=== PATIENT | female | born 1985 | race Caucasian/White ===

== ENCOUNTER 2016-06-25 12:28 | Observation (INO) | payer OTHER ==
[~2016-06-25] VITALS: Ht 150 cm; Wt 59.9 kg
[2016-06-25 13:02] VITALS: BP 116/69
[2016-06-25] MEDS ORDERED: PREN1TAB80 PO (13:03)
[2016-06-25 13:21] LABS: BASOPHILS # (AUTO) 0.01 K/uL (0.00-0.20); BASOPHILS % (AUTO) 0.1 % (0.0-2.0); EOSINOPHILS # (AUTO) 0.06 K/uL (0.00-0.70); EOSINOPHILS % (AUTO) 0.72 % (1.0-6.0); HEMOGLOBIN 11.9 g/dL (12.0-16.0); LYMPHOCYTES # (AUTO) 1.5 K/uL (1.0-4.8); LYMPHOCYTES % (AUTO) 16.5 % (22.0-44.0); MEAN CORPUSCULAR HEMOGLOBIN 30.9 pg (26.0-34.0); MEAN CORPUSCULAR HGB CONC 33.1 G/dL (31.0-37.0); MEAN CORPUSCULAR VOLUME 93 fL (80-100); MONOCYTES # (AUTO) 0.6 K/uL (0.1-1.0); MONOCYTES % (AUTO) 6.2 % (2.0-9.0); NEUTROPHILS # (AUTO) 6.8 K/uL (1.8-7.7); NEUTROPHILS % (AUTO) 76.5 % (40.0-70.0); RED BLOOD CELL COUNT(AUTO) 3.87 MIL/uL (4.00-5.20); RED CELL DISTRIBUTION WIDTH 14.7 % (11.5-14.5); WHITE BLOOD COUNT (AUTO) 8.9 K/uL (4.5-11.0)
[2016-06-25 13:24] LABS: RBC MORPHOLOGY COMMENT NORMAL RBC MORPH
[2016-06-25] MEDS ORDERED: PHENYLEPHRINE/SHK LV/MIN OIL/PET 57 GM OINTMENT TP PRN (13:45)
[2016-06-25 13:49] LABS: ALANINE AMINOTRANSFERASE 142 U/L (12-78); ALBUMIN 2.3 g/dL (3.4-5.0); ANION GAP 11 mmol/L (8-16); ASPARTATE AMINOTRANSFERASE 58 U/L (15-37); BILIRUBIN,TOTAL 0.5 mg/dL (0.1-1.0); CALCIUM, TOTAL 8.9 mg/dL (8.8-10.5); CARBON DIOXIDE 23 mmol/L (22-29); CHLORIDE 105 mmol/L (98-107); CREATININE 0.69 mg/dL (0.60-1.30); GLOMERULAR FILTR. RATE CALC > 60 mL/min (>60); POTASSIUM 4.3 mmol/L (3.5-5.1); SODIUM SERUM 139 mmol/L (136-145); TOTAL PROTEIN, SERUM 6.8 g/dL (6.4-8.2); UREA NITROGEN, BLOOD 13 mg/dL (7-18)
== END 2016-06-25 14:50 | disposition home or self-care (01) ==
LOC: EDBD 12:28 → 4S 12:28
PROVIDERS: ADMIT Obstetrics & Gynecology; ATTEND Obstetrics & Gynecology
DX: O26.893 Other specified pregnancy related conditions, third trimester (principal); Z3A.36 36 weeks gestation of pregnancy
CPT/HCPCS: 36415; 59025; 80053; 82239; 85025; G0378

== ENCOUNTER 2016-06-28 20:39 | Inpatient (IN) | payer OTHER ==
[~2016-06-28] VITALS: Ht 160 cm; Wt 60.8 kg
[~2016-06-28 20:39] MED LIST: PREN1TAB80 PO
[2016-06-28] MEDS ORDERED: OXYTOCIN 30 UNITS/LACT RINGERS 500 ML IV ONE (21:18)
[2016-06-28] MEDS ORDERED: RINGERS SOLUTION,LACTATED 1,000 ML IV ONE (21:18)
[2016-06-28] MEDS ORDERED: LIDOCAINE HCL/PF 1% 30 ML VIAL INJ PRN (21:30)
[2016-06-28] MEDS ORDERED: METOCLOPRAMIDE HCL 5 MG/ML 2 ML VIAL IVP PRN (21:30)
[2016-06-28 21:49] LABS: BASOPHILS # (AUTO) 0.04 K/uL (0.00-0.20); BASOPHILS % (AUTO) 0.4 % (0.0-2.0); EOSINOPHILS # (AUTO) 0.06 K/uL (0.00-0.70); EOSINOPHILS % (AUTO) 0.73 % (1.0-6.0); HEMOGLOBIN 11.7 g/dL (12.0-16.0); LYMPHOCYTES # (AUTO) 2.3 K/uL (1.0-4.8); LYMPHOCYTES % (AUTO) 25.6 % (22.0-44.0); MEAN CORPUSCULAR HEMOGLOBIN 30.8 pg (26.0-34.0); MEAN CORPUSCULAR HGB CONC 33.3 G/dL (31.0-37.0); MEAN CORPUSCULAR VOLUME 93 fL (80-100); MONOCYTES # (AUTO) 0.3 K/uL (0.1-1.0); MONOCYTES % (AUTO) 3.8 % (2.0-9.0); NEUTROPHILS # (AUTO) 6.1 K/uL (1.8-7.7); NEUTROPHILS % (AUTO) 69.4 % (40.0-70.0); RED BLOOD CELL COUNT(AUTO) 3.78 MIL/uL (4.00-5.20); RED CELL DISTRIBUTION WIDTH 14.1 % (11.5-14.5); WHITE BLOOD COUNT (AUTO) 8.8 K/uL (4.5-11.0)
[2016-06-28] MEDS: RINGERS SOLUTION,LACTATED 1,000 ML IV SCH (22:19)
[2016-06-28 22:27] VITALS: BP 129/85
[2016-06-28] MEDS ORDERED: INFLUENZA VIRUS VACCINE QVS 2016-17 (3YR+)/PF 60 MCG/0.5 ML SYRINGE IM ONE (22:45)
[2016-06-28] MEDS: OXYTOCIN 30 UNITS/LACT RINGERS 500 ML IV PRN (23:45)
[2016-06-29] MEDS: RINGERS SOLUTION,LACTATED 1,000 ML IV SCH ×3 (03:48→18:12)
[2016-06-29 11:37] LABS: ALANINE AMINOTRANSFERASE 159 U/L (12-78); ANION GAP 12 mmol/L (8-16); ASPARTATE AMINOTRANSFERASE 89 U/L (15-37); BILIRUBIN,TOTAL 0.7 mg/dL (0.1-1.0); CALCIUM, TOTAL 8.4 mg/dL (8.8-10.5); CARBON DIOXIDE 22 mmol/L (22-29); CHLORIDE 105 mmol/L (98-107); POTASSIUM 4.3 mmol/L (3.5-5.1); SODIUM SERUM 139 mmol/L (136-145); TOTAL PROTEIN, SERUM 6.1 g/dL (6.4-8.2); UREA NITROGEN, BLOOD 9 mg/dL (7-18)
[2016-06-29 11:43] LABS: CREATININE 0.69 mg/dL (0.60-1.30); GLOMERULAR FILTR. RATE CALC > 60 mL/min (>60)
[2016-06-29] MEDS: FentaNYL CITRATE-PF 100 MCG/2 ML VIAL IVP PRN ×4 (15:51→19:30)
[2016-06-29] MEDS ORDERED: ROPIVACAINE HCL 0.2% ED ONE (20:31)
[2016-06-29] MEDS ORDERED: ROPIVACAINE HCL 0.2% 100 ML ED ONE (21:32)
[2016-06-29] MEDS ORDERED: ROPIVACAINE HCL 0.2% 100 ML ED PRN (21:35)
[2016-06-29] MEDS ORDERED: NALBUPHINE HCL 10 MG/ML VIAL IVP PRN (21:45)
[2016-06-29] MEDS ORDERED: PROMETHAZINE HCL 25 MG/ML VIAL IM PRN (21:45)
[2016-06-29] MEDS ORDERED: ONDANSETRON HCL 4 MG/2 ML VIAL IVP PRN (21:45)
[2016-06-29] MEDS ORDERED: DiphenhydrAMINE HCL 50 MG/ML VIAL IVP PRN (21:45)
[2016-06-30] MEDS ORDERED: ROPIVACAINE HCL 0.2% 100 ML ED ONE (02:28)
[2016-06-30] MEDS: RINGERS SOLUTION,LACTATED 1,000 ML IV SCH ×2 (03:14→06:26)
[2016-06-30] MEDS ORDERED: ACETAMINOPHEN 1000 MG/ISO-OSM 100 ML IV ONE (06:15)
[2016-06-30] MEDS ORDERED: LIDOCAINE HCL 2%/EPI 1:200,000/PF 10 ML VIAL ONE (06:35)
[2016-06-30] MEDS: OXYTOCIN 30 UNITS/LACT RINGERS 500 ML IV PRN (07:24)
[2016-06-30] MEDS ORDERED: LANOLIN 7 GM OINTMENT TP PRN (09:15)
[2016-06-30] MEDS ORDERED: ACETAMINOPHEN/CODEINE 300-30 MG TABLET PO PRN (09:15)
[2016-06-30] MEDS ORDERED: OXYTOCIN 20 UNITS in RINGERS SOLUTION,LACTATED 1,000 ML IV ONE (09:25)
[2016-06-30] MEDS: BENZOCAINE 20%/MENTHOL 56 GM SPRAY CANISTER TP PRN ×2 (09:54→16:08)
[2016-06-30] MEDS: GLYCERIN/WITCH HAZEL LEAF 40 PADS JAR TP PRN ×2 (09:54→16:08)
[2016-06-30] MEDS: IBUPROFEN 600 MG TABLET PO PRN ×2 (09:55→16:07)
[2016-06-30] MEDS: ACETAMINOPHEN/CODEINE 300-30 MG TABLET PO PRN ×2 (11:16→12:16)
[2016-06-30 15:13] LABS: BASOPHILS % (AUTO) 0.2 % (0.0-2.0); EOSINOPHILS % (AUTO) 0.1 % (1.0-6.0); HEMATOCRIT 31.6 % (36-46); HEMOGLOBIN 10.4 g/dL (12.0-16.0); LYMPHOCYTES # (AUTO) 1.9 K/uL (1.0-4.8); MEAN CORPUSCULAR HEMOGLOBIN 30.8 pg (26.0-34.0); MEAN CORPUSCULAR VOLUME 93 fL (80-100); MONOCYTES # (AUTO) 0.9 K/uL (0.1-1.0); MONOCYTES % (AUTO) 5.4 % (2.0-9.0); NEUTROPHILS # (AUTO) 14.6 K/uL (1.8-7.7); NEUTROPHILS % (AUTO) 83.3 % (40.0-70.0); RED BLOOD CELL COUNT(AUTO) 3.39 MIL/uL (4.00-5.20); RED CELL DISTRIBUTION WIDTH 14.8 % (11.5-14.5); WHITE BLOOD COUNT (AUTO) 17.5 K/uL (4.5-11.0)
[2016-06-30 15:35] LABS: ALANINE AMINOTRANSFERASE 139 U/L (12-78); ALBUMIN 1.7 g/dL (3.4-5.0); ANION GAP 9 mmol/L (8-16); ASPARTATE AMINOTRANSFERASE 97 U/L (15-37); BILIRUBIN,TOTAL 0.6 mg/dL (0.1-1.0); CALCIUM, TOTAL 8.5 mg/dL (8.8-10.5); CARBON DIOXIDE 23 mmol/L (22-29); CHLORIDE 104 mmol/L (98-107); CREATININE 0.94 mg/dL (0.60-1.30); GLOMERULAR FILTR. RATE CALC > 60 mL/min (>60); POTASSIUM 4.2 mmol/L (3.5-5.1); SODIUM SERUM 136 mmol/L (136-145); TOTAL PROTEIN, SERUM 5.3 g/dL (6.4-8.2); UREA NITROGEN, BLOOD 11 mg/dL (7-18)
[2016-06-30] MEDS: SENNA/DOCUSATE SODIUM 187-50 MG TABLET PO SCH (20:33)
[2016-06-30] MEDS: MAGNESIUM HYDROXIDE SUSPENSION 30 ML UDCUP PO SCH (20:33)
[2016-07-01 07:25] LABS: BASOPHILS # (AUTO) 0.06 K/uL (0.00-0.20); BASOPHILS % (AUTO) 0.5 % (0.0-2.0); EOSINOPHILS # (AUTO) 0.08 K/uL (0.00-0.70); HEMATOCRIT 28.1 % (36-46); HEMOGLOBIN 9.3 g/dL (12.0-16.0); LYMPHOCYTES # (AUTO) 2.2 K/uL (1.0-4.8); LYMPHOCYTES % (AUTO) 17.4 % (22.0-44.0); MEAN CORPUSCULAR VOLUME 94 fL (80-100); MONOCYTES # (AUTO) 0.6 K/uL (0.1-1.0); MONOCYTES % (AUTO) 4.6 % (2.0-9.0); NEUTROPHILS # (AUTO) 9.9 K/uL (1.8-7.7); NEUTROPHILS % (AUTO) 76.9 % (40.0-70.0); RED BLOOD CELL COUNT(AUTO) 2.99 MIL/uL (4.00-5.20); RED CELL DISTRIBUTION WIDTH 15.6 % (11.5-14.5); WHITE BLOOD COUNT (AUTO) 12.8 K/uL (4.5-11.0)
[2016-07-01 08:10] LABS: ALANINE AMINOTRANSFERASE 112 U/L (12-78); ALBUMIN 1.8 g/dL (3.4-5.0); ANION GAP 5 mmol/L (8-16); ASPARTATE AMINOTRANSFERASE 80 U/L (15-37); BILIRUBIN,TOTAL 0.3 mg/dL (0.1-1.0); CALCIUM, TOTAL 8.3 mg/dL (8.8-10.5); CARBON DIOXIDE 26 mmol/L (22-29); CHLORIDE 106 mmol/L (98-107); CREATININE 0.88 mg/dL (0.60-1.30); GLOMERULAR FILTR. RATE CALC > 60 mL/min (>60); POTASSIUM 4.6 mmol/L (3.5-5.1); SODIUM SERUM 137 mmol/L (136-145); TOTAL PROTEIN, SERUM 5.3 g/dL (6.4-8.2); UREA NITROGEN, BLOOD 13 mg/dL (7-18)
[2016-07-01] MEDS: MAGNESIUM HYDROXIDE SUSPENSION 30 ML UDCUP PO SCH (08:23)
[2016-07-01] MEDS: ACETAMINOPHEN/CODEINE 300-30 MG TABLET PO PRN (08:24)
[2016-07-01] MEDS: SENNA/DOCUSATE SODIUM 187-50 MG TABLET PO SCH (08:24)
[2016-07-01] MEDS: IBUPROFEN 600 MG TABLET PO PRN (08:24)
[2016-07-01] MEDS ORDERED: DSS100 PO (12:58)
[2016-07-01] MEDS ORDERED: FERR-89 PO (12:58)
[2016-07-01] MEDS ORDERED: IBUP-2070 PO (12:58)
== END 2016-07-01 14:15 | disposition home or self-care (01) | DRG 775 ==
LOC: OBSVTOIN 20:39 → 4S 20:39
PROVIDERS: ADMIT Obstetrics & Gynecology; ATTEND Obstetrics & Gynecology
PROC: 10D07Z6 Extraction of Products of Conception, Vacuum, Via Natural or Artificial Opening (ICD-10-PCS; principal; 2016-06-29)
PROC: 0UQMXZZ Repair Vulva, External Approach (ICD-10-PCS; 2016-06-29)
PROC: 3E0S3CZ (ICD-10-PCS; 2016-06-29)
PROC: 00HU33Z Insertion of Infusion Device into Spinal Canal, Percutaneous Approach (ICD-10-PCS; 2016-06-29)
PROC: 3E0234Z Introduction of Serum, Toxoid and Vaccine into Muscle, Percutaneous Approach (ICD-10-PCS; 2016-06-29)
DX: O26.62 Liver and biliary tract disorders in childbirth (principal); K83.1 Obstruction of bile duct; Z23 Encounter for immunization; O75.81 Maternal exhaustion complicating labor and delivery; O66.0 Obstructed labor due to shoulder dystocia; O71.82 Other specified trauma to perineum and vulva; Z37.0 Single live birth; Z3A.37 37 weeks gestation of pregnancy; O66.5 Attempted application of vacuum extractor and forceps
CPT/HCPCS: 86850; 86900; 86901; 90471; J0131; J2590; J2795; J3010; J3490; J7120

== ENCOUNTER 2017-11-21 17:45 | Inpatient (IN) | payer OTHER ==
[~2017-11-21] VITALS: Ht 149.9 cm; Wt 56.2 kg
[~2017-11-21 17:45] MED LIST changes: +DSS100 PO; +FERR-89 PO; +IBUP-2070 PO
[2017-11-21] MEDS ORDERED: RINGERS SOLUTION,LACTATED 1,000 ML IV PRN (17:47)
[2017-11-21] MEDS ORDERED: OXYTOCIN 30 UNITS/LACT RINGERS 500 ML IV ONE (17:47)
[2017-11-21 18:00] VITALS: BP 114/73
[2017-11-21] MEDS ORDERED: LIDOCAINE HCL/PF 1% 30 ML VIAL INJ PRN (18:00)
[2017-11-21] MEDS ORDERED: CITRIC ACID/SODIUM CITRATE 30 ML SOLUTION UDCUP PO PRN (18:00)
[2017-11-21] MEDS ORDERED: METOCLOPRAMIDE HCL 5 MG/ML 2 ML VIAL IVP PRN (18:00)
[2017-11-21] MEDS ORDERED: METHYLERGONOVINE MALEATE 0.2 MG/ML VIAL IM PRN (18:00)
[2017-11-21 18:43] LABS: BASOPHILS % (AUTO) 1.2 % (0.0-2.0); EOSINOPHILS % (AUTO) 0.4 % (1.0-6.0); HEMATOCRIT 34.4 % (36-46); HEMOGLOBIN 11.7 g/dL (12.0-16.0); LYMPHOCYTES # (AUTO) 1.7 K/uL (1.0-4.8); LYMPHOCYTES % (AUTO) 17.7 % (22.0-44.0); MEAN CORPUSCULAR HEMOGLOBIN 31.5 pg (26.0-34.0); MEAN CORPUSCULAR HGB CONC 33.9 G/dL (31.0-37.0); MEAN CORPUSCULAR VOLUME 93 fL (80-100); MONOCYTES # (AUTO) 0.5 K/uL (0.1-1.0); MONOCYTES % (AUTO) 4.8 % (2.0-9.0); NEUTROPHILS # (AUTO) 7.4 K/uL (1.8-7.7); NEUTROPHILS % (AUTO) 75.9 % (40.0-70.0); PLATELET COUNT (AUTO) 253 K/uL (150-450); RED BLOOD CELL COUNT(AUTO) 3.71 MIL/uL (4.00-5.20); RED CELL DISTRIBUTION WIDTH 14.4 % (11.5-14.5)
[2017-11-21 18:53] LABS: ANION GAP 11 mmol/L (8-16); CALCIUM, TOTAL 8.8 mg/dL (8.8-10.5); CARBON DIOXIDE 25 mmol/L (22-29); CHLORIDE 102 mmol/L (98-107); CREATININE 0.66 mg/dL (0.60-1.30); GLOMERULAR FILTR. RATE CALC > 60 mL/min (>60); GLUCOSE,RANDOM 105 mg/dL (70-110); POTASSIUM 3.9 mmol/L (3.5-5.1); SODIUM SERUM 138 mmol/L (136-145); UREA NITROGEN, BLOOD 10 mg/dL (7-18)
[2017-11-21 18:58] LABS: ALANINE AMINOTRANSFERASE 66 U/L (12-78); ALBUMIN 2.2 g/dL (3.4-5.0); ALKALINE PHOSPHATASE 148 U/L (46-116); ASPARTATE AMINOTRANSFERASE 36 U/L (15-37); BILIRUBIN,TOTAL 0.3 mg/dL (0.1-1.0); TOTAL PROTEIN, SERUM 6.9 g/dL (6.4-8.2)
[2017-11-21] MEDS ORDERED: OXYGEN THERAPY IH SCH (20:00)
[2017-11-22] MEDS: RINGERS SOLUTION,LACTATED 1,000 ML IV SCH ×2 (02:02→09:29)
[2017-11-22] MEDS ORDERED: OXYTOCIN 30 UNITS/LACT RINGERS 500 ML IV PRN (05:06)
[2017-11-22] MEDS ORDERED: ROPIVACAINE HCL/PF 0.2% 100 ML ED ONE (05:36)
[2017-11-22] MEDS ORDERED: LIDOCAINE HCL/PF 2% 5 ML VIAL ONE (05:36)
[2017-11-22] MEDS ORDERED: FentaNYL CITRATE-PF 100 MCG/2 ML VIAL ONE ×2 (08:47→09:12)
[2017-11-22] MEDS ORDERED: LIDOCAINE HCL 1%/EPI 1:200,000/PF 10 ML VIAL ONE (08:48)
[2017-11-22] MEDS ORDERED: LIDOCAINE HCL 2%/EPI 1:200,000/PF 20 ML VIAL ONE ×2 (08:48→09:27)
[2017-11-22] MEDS ORDERED: ACETAMINOPHEN/CODEINE 300-30 MG TABLET PO PRN (10:15)
[2017-11-22] MEDS ORDERED: LANOLIN 7 GM OINTMENT TP PRN (10:15)
[2017-11-22] MEDS: IBUPROFEN 800 MG TABLET PO SCH ×2 (11:44→20:26)
[2017-11-22] MEDS: BENZOCAINE 20%/MENTHOL 56 GM SPRAY CANISTER TP PRN (11:45)
[2017-11-22] MEDS: GLYCERIN/WITCH HAZEL LEAF 40 PADS JAR TP PRN (11:45)
[2017-11-22] MEDS: ACETAMINOPHEN/CODEINE 300-30 MG TABLET PO PRN (16:58)
[2017-11-22] MEDS: MAGNESIUM HYDROXIDE SUSPENSION 30 ML UDCUP PO SCH (20:27)
[2017-11-23] MEDS: IBUPROFEN 800 MG TABLET PO SCH ×2 (02:51→10:40)
[2017-11-23] MEDS: MAGNESIUM HYDROXIDE SUSPENSION 30 ML UDCUP PO SCH (07:55)
[2017-11-23] MEDS: ACETAMINOPHEN/CODEINE 300-30 MG TABLET PO PRN (07:55)
[2017-11-23] MEDS ORDERED: IBUP-2070 PO (09:07)
[2017-11-23] MEDS: GLYCERIN/WITCH HAZEL LEAF 40 PADS JAR TP PRN (11:07)
[2017-11-23] MEDS: BENZOCAINE 20%/MENTHOL 56 GM SPRAY CANISTER TP PRN (11:07)
[2017-11-23] MEDS ORDERED: FentaNYL CITRATE-PF 100 MCG/2 ML VIAL IVP ONE (13:19)
== END 2017-11-23 13:20 | disposition home or self-care (01) | DRG 775 ==
LOC: OBSVTOIN 17:45 → 4S 17:45
PROVIDERS: ADMIT Obstetrics & Gynecology; ATTEND Obstetrics & Gynecology
PROC: 10E0XZZ Delivery of Products of Conception, External Approach (ICD-10-PCS; principal; 2017-11-22)
PROC: 0HQ9XZZ Repair Perineum Skin, External Approach (ICD-10-PCS; 2017-11-22)
PROC: 3E0R3BZ Introduction of Anesthetic Agent into Spinal Canal, Percutaneous Approach (ICD-10-PCS; 2017-11-22)
PROC: 00HU33Z Insertion of Infusion Device into Spinal Canal, Percutaneous Approach (ICD-10-PCS; 2017-11-22)
DX: O70.0 First degree perineal laceration during delivery (principal); Z3A.38 38 weeks gestation of pregnancy; Z37.0 Single live birth
CPT/HCPCS: 86850; 86900; 86901; J2590; J2795; J3010; J3490; J7120